=== PATIENT | female | born 1960 | race Caucasian/White ===

== ENCOUNTER 2020-12-11 22:49 | Emergency (ER) | payer MEDICAID ==
[2020-12-12 00:30] LABS: HEMOGLOBIN 10.4 gm/dl (12.3-15.3); RED BLOOD COUNT 3.44 M/UL (4.00-5.10); WHITE BLOOD COUNT 6.6 K/UL (4.5-11.0)
[2020-12-12 00:45] LABS: BUN/CREATININE RATIO 12 (0-10)
[2020-12-12] MEDS ORDERED: ANTIVERT 12.512.5 MG PO (02:45)
== END 2020-12-12 03:30 | disposition home or self-care (01) ==
LOC: ER1 22:49
PROVIDERS: Preventive Medicine Occupational Medicine
DX: R11.2 Nausea with vomiting, unspecified (principal); R42 Dizziness and giddiness; R53.1 Weakness
CPT/HCPCS: 36600; 71045; 80053; 81001; 82009; 82550; 82553; 82803; 83605; 83690; 83874; 84484; 85025; 85652; 86140; 87086; 93005; 94760; 96374; 96375; 99284; J0696; J2405